=== PATIENT | female | born 1950 | race Caucasian/White ===

== ENCOUNTER 2020-10-22 14:51 | Outpatient (REF) | payer MEDICARE, MEDICAID, SELFPAY ==
[2020-10-22 15:32] LABS: Hematocrit 38.4 % (37-47); Hemoglobin 12.7 g/dl (12.0-16.0); Mean Corpuscular HGB Conc 33.1 g/dl (31.0-35.0); Mean Corpuscular Hemoglobin 28.6 pg (27.0-33.0); Mean Corpuscular Volume 86.5 fL (80-98); Mean Platelet Volume 10.9 fL (9.4-12.3); Platelet Count 182 X10*3/uL (160-400); Red Blood Count 4.44 X10*6/uL (4.20-5.50); Red Cell Distribution Width 12.4 % (11.0-16.0); White Blood Count 6.3 X10*3/uL (4.8-10.8)
[2020-10-22 15:57] LABS: Alanine Aminotransferase 20 U/L (0-31); Albumin Level 4.4 g/dL (3.5-5.0); Alkaline Phosphatase 74 U/L (39-117); Anion Gap 13 (12-20); Aspartate Amino Transferase 23 U/L (5-31); Bilirubin Direct 0.3 mg/dL (0.0-0.5); Bilirubin Total 0.8 mg/dL (0.0-1.0); Blood Urea Nitrogen 22 mg/dL (9-16); Calcium 9.2 mg/dL (8.4-10.2); Carbon Dioxide 23 mmol/L (22-29); Chloride 107 mmol/L (96-108); Cholesterol 192 mg/dL; Estimated Glomerular Filt Rate > 60; Glucose Random 100 mg/dL (60-115); HDL Cholesterol 48 mg/dL; LDL Cholesterol Calculated 99 mg/dl; Potassium 4.2 mmol/L (3.3-5.1); Sodium 139 mmol/L (135-145); Total Protein 7.2 g/dL (6.5-8.0); Triglycerides 227 mg/dL
[2020-10-22 16:20] LABS: Thyroid Stimulating Hormone 2.09 uIU/mL (0.32-4.0)
[2020-10-22 16:24] LABS: Appearance Urine HAZY; Color Urine YELLOW; Glucose Urine UA NEG (NEG); Leukocyte Esterase Urine NEG (NEG); Nitrite Urine NEG (NEG); PH 5.5 (5.0-8.0); Specific Gravity - Urine 1.025 (1.005-1.025); Urine Blood NEG (NEG); Urine Ketones NEG (NEG); Urine Protein NEG (NEG-TRACE)
[2020-10-26 14:21] LABS: Vitamin D 25-OH, D2 <4 ng/mL; Vitamin D 25-OH, D3 11 ng/mL; Vitamin D 25-OH, Total 11 ng/mL (30-100)
== END 2020-10-22 14:52 | disposition home or self-care (01) ==
LOC: HO.LAB 14:51
PROVIDERS: PCP Internal Medicine; Visit Provider Internal Medicine
DX: E03.9 Hypothyroidism, unspecified (principal); E78.00 Pure hypercholesterolemia, unspecified; M19.90 Unspecified osteoarthritis, unspecified site; I10 Essential (primary) hypertension; F43.21 Adjustment disorder with depressed mood
CPT/HCPCS: 36415; 80048; 80061; 80076; 81003; 82306; 84443; 85027

== ENCOUNTER 2021-09-30 12:11 | Outpatient (REF) | payer MEDICARE, MEDICAID, SELFPAY ==
[2021-09-30 13:12] LABS: Alanine Aminotransferase 18 U/L (0-31); Albumin Level 4.3 g/dL (3.5-5.0); Alkaline Phosphatase 70 U/L (39-117); Anion Gap 12 (12-20); Aspartate Amino Transferase 17 U/L (5-31); Bilirubin Direct 0.4 mg/dL (0.0-0.5); Blood Urea Nitrogen 15 mg/dL (9-16); Carbon Dioxide 26 mmol/L (22-29); Chloride 106 mmol/L (96-108); Cholesterol 190 mg/dL; Estimated Glomerular Filt Rate > 60; Glucose Random 103 mg/dL (60-115); HDL Cholesterol 41 mg/dL; LDL Cholesterol Calculated 91 mg/dl; Potassium 4.1 mmol/L (3.3-5.1); Sodium 140 mmol/L (135-145); Total Protein 7.3 g/dL (6.5-8.0); Triglycerides 294 mg/dL
[2021-09-30 13:35] LABS: Thyroid Stimulating Hormone 3.28 uIU/mL (0.32-4.0)
[2021-09-30 14:50] LABS: Appearance Urine CLOUDY; Color Urine YELLOW; Glucose Urine UA NEG (NEG); Leukocyte Esterase Urine NEG (NEG); Nitrite Urine NEG (NEG); Urine Blood NEG (NEG); Urine Ketones NEG (NEG); Urine Protein NEG (NEG-TRACE)
[2021-10-04 13:03] LABS: Vitamin D 25-OH, D2 <4 ng/mL; Vitamin D 25-OH, D3 34 ng/mL; Vitamin D 25-OH, Total 34 ng/mL (30-100)
== END 2021-09-30 12:12 | disposition home or self-care (01) ==
LOC: HO.LAB 12:11
PROVIDERS: PCP Internal Medicine; Visit Provider Internal Medicine
DX: E03.9 Hypothyroidism, unspecified (principal); E78.00 Pure hypercholesterolemia, unspecified; I10 Essential (primary) hypertension
CPT/HCPCS: 36415; 80048; 80061; 80076; 81003; 82306; 84443; 86140

== ENCOUNTER 2021-12-13 08:30 | Outpatient (REF) | payer MEDICARE, MEDICAID, SELFPAY ==
--- NOTE | ~2021-12-13 | MM_ITS ---
EXAMINATION: MM SCREENING DIGITAL BREAST TOMOSYNTHESIS, BILATERAL CLINICAL INFORMATION: Screening. Asymptomatic. The lifetime risk of breast cancer based on the Tyrer-Cuzick Model is 3%. COMPARISON: Mammography: 01/14/2019, 03/22/2014 TECHNIQUE: Digital breast tomosynthesis is performed in both the craniocaudal and mediolateral oblique views along with computer-aided detection (CAD). Synthesized 2D images are generated from the tomosynthesis. FINDINGS: There are scattered areas of fibroglandular density (ACR BI-RADS breast composition Category b). There are no significant masses, abnormal calcifications, or other abnormalities. Parenchymal pattern is similar to prior exam. There is a 0.8 cm macrolobulated nodule left breast mid central 11:00 position similar to prior exam. No developing density. No significant change. MM/MM tomosynthesis screening BI IMPRESSION: No mammographic evidence of malignancy. ASSESSMENT: BI-RADS 2: Benign RECOMMENDATION: Routine annual mammography screening. This patient's information was entered into a reminder system with a target due date for their next mammogram.
== END 2021-12-13 08:31 | disposition home or self-care (01) ==
LOC: HO.MAMMO 08:30
PROVIDERS: PCP Internal Medicine; Visit Provider Internal Medicine
DX: Z12.31 Encounter for screening mammogram for malignant neoplasm of breast (principal)
CPT/HCPCS: 77063; 77067

== ENCOUNTER 2022-10-30 11:03 | Outpatient (REF) | payer MEDICARE, MEDICAID, SELFPAY ==
[2022-10-30 12:16] LABS: Hematocrit 39.3 % (37.0-47.0); Mean Corpuscular HGB Conc 33.1 g/dl (31.0-35.0); Mean Corpuscular Hemoglobin 28.6 pg (27.0-33.0); Mean Corpuscular Volume 86.4 fL (80.0-98.0); Mean Platelet Volume 11.3 fL (9.4-12.3); Platelet Count 193 X10*3/uL (160-400); Red Blood Count 4.55 X10*6/uL (4.20-5.50); Red Cell Distribution Width 12.6 % (11.0-16.0); White Blood Count 6.4 X10*3/uL (4.8-10.8)
[2022-10-30 12:37] LABS: Appearance Urine Cloudy; Color Urine Yellow; Glucose Urine UA Negative (Negative); Leukocyte Esterase Urine Moderate (2+) (Negative); Nitrite Urine Negative (Negative); UMIC TRIGGER UA YES; Urine Blood Negative (Negative); Urine Ketones Negative (Negative); Urine Protein Negative (Neg-Trace)
[2022-10-30 12:46] LABS: Bacteria Urine 3+ (None Seen); RBC Urine 0-2 /HPF (0-2); Squamous Epithelial Cell Urine >20 /HPF (0-2)
[2022-10-30 13:14] LABS: Alanine Aminotransferase 20 U/L (0-31); Albumin Level 4.4 g/dL (3.5-5.0); Alkaline Phosphatase 72 U/L (39-117); Anion Gap 15 (12-20); Aspartate Amino Transferase 19 U/L (5-31); Bilirubin Direct 0.2 mg/dL (0.0-0.5); Bilirubin Total 1.3 mg/dL (0.0-1.0); Blood Urea Nitrogen 18 mg/dL (9-16); Calcium 9.5 mg/dL (8.4-10.2); Carbon Dioxide 26 mmol/L (22-29); Chloride 105 mmol/L (96-108); Cholesterol 184 mg/dL; Estimated Glomerular Filt Rate > 60; Glucose Random 106 mg/dL (60-115); HDL Cholesterol 44 mg/dL; LDL Cholesterol Calculated 93 mg/dl; Potassium 4.8 mmol/L (3.3-5.1); Sodium 141 mmol/L (135-145); Triglycerides 237 mg/dL
[2022-10-30 13:22] LABS: Thyroid Stimulating Hormone 3.46 uIU/mL (0.32-4.0)
== END 2022-10-30 11:04 | disposition home or self-care (01) ==
LOC: HO.LAB 11:03
PROVIDERS: PCP Internal Medicine; Visit Provider Internal Medicine
DX: I10 Essential (primary) hypertension (principal); E78.00 Pure hypercholesterolemia, unspecified
CPT/HCPCS: 36415; 80048; 80061; 80076; 81001; 84443; 85027

== ENCOUNTER 2023-04-30 09:56 | Outpatient (AMB) | payer MEDICARE, MEDICAID, SELFPAY ==
--- NOTE | 2023-04-30 10:01 | A.OFFPC_ITS ---
Vital Signs 04/30/23 10:03 Height 5 ft 3 in Weight 192 lb 4 oz BMI 34.1 BP 130/74 Blood Pressure Location Lt brachial Position Sitting Pulse 56 Pulse Source Pulse Oximeter Pulse Oximetry (%) 96 Oxygen Delivery Method Room Air Intake Visit Reasons: 6mth f/u Intake Note: Patient is here to follow up on HTN,Osteoarthritis, Hypercholesterolemia. Liquefied Petroleum Gasfitter Required: Yes Liquefied Petroleum Gasfitter Language: Trinidadian Liquefied Petroleum Gasfitter Name: Daughter Network Technical Analyst: Present Accompanied by: Daughter Allergies No Known Allergies Allergy (Verified 05/05/23 06:33) Medication List - Last Reconciled 05/05/23 by Parish Francisco MD cholecalciferol (vitamin D3) 1,250 mcg PO QWEEK clonazepam 0.5 mg PO BID 30 days diclofenac sodium 75 mg PO BID levothyroxine 100 mcg PO DAILY lisinopril 20 mg PO DAILY metoprolol tartrate 50 mg PO BID simvastatin 40 mg PO DAILY tramadol 50 mg PO DAILY walker (Ultra-Light Rollator misc) with seat [walker with seat As directed] Tobacco use date assessed: 10/30/22 HPI 6mth f/u HPI Details 72-year-old female presents to the offic e to discuss her chronic medical conditions. Her daughter is translating for the patient. Patient continues to have nonspecific pains in different parts of her body. Mostly around the joints and has stiffness. Daughter reports that the symptoms are waxing and waning in intensity. She has good days when she is very active and able to function and in the other days she just likes to sit around. Her appetite is good. Bowel movements are good. Sleep patterns are good with the medications. Compliant with all medications. Anxiety symptoms are at baseline. [facility] Medical History (Updated 05/05/23 @ 06:44 by Parish Francisco MD) Generalized anxiety disorder Grief reaction Acquired hypothyroidism Borderline hypercholesterolemia Osteoarthritis Essential (primary) hypertension Surgical History No pertinent past surgical history Family History Father No problems noted. Mother No problems noted. Brother No problems noted. Brother No problems noted. Brother No problems noted. Brother No problems noted. Sister No problems noted. Sister No problems noted. Son No problems noted. Son No problems noted. Daughter No problems noted. Social History Housing: Apartment Alcohol intake: never Patient Tobacco Use Status: Never used Tobacco e-Cigarette/Vaping Use: Never Used Second Hand Smoke Exposure: No service: No Current occupational status: disabled Cognitive needs: Yes (cane) Hearing needs: No Vision needs: Yes (glasses) Questionnaire PHQ-9 Over the last 2 weeks, how often have you been bothered by any of the following problems? 1. Little interest or pleasure in doing things: not at all 2. Feeling down, depressed, or hopeless: not at all 3. Trouble falling or staying asleep, or sleeping too much: not at all 4. Feeling tired or having little energy: not at all 5. Poor appetite or overeating: not at all 6. Feeling bad about yourself - or that you are a failure or have let yourself or your family down: not at all 7. Trouble concentrating on things, such as reading the newspaper or watching television: not at all 8. Moving or speaking so slowly that other people could have noticed. Or the opposite - being so fidgety or restless that you have been moving around a lot more than usual: not at all 9. Thoughts that you would be better off or of hurting yourself in some way: not at all Total score: 0 Depression Screening Interpretation: Negative Source: Developed by Drs. Brian Barragan, Suzanne Couch, Christophe Judge and colleagues, with an educational perry from [employer]. Thrive Questionnaire Date Thrive assessed: 04/30/23 I am a: Patient What is your living situation today?: I have a steady place to live Within the past 12 months, did the food you bought not last and you didn't have the money to get more?: Never true Within the past 12 months, did you worry whether your food would run out before you got money to buy more?: Never true Do you have trouble paying for medicines?: No Do you have trouble getting transportation to medical appointments?: No Do you have trouble paying your heating and electricity bill?: No Do you have trouble taking care of your child, family member or friend?: No Do you have trouble with day-to-day activities such as bathing, preparing meals, shopping, managing finances, etc.?: No Are you currently unemployed and looking for a job?: No Are you interested in more education?: No Currently or been in a relationship where the following occur: no concerns reported AUDIT C Alcohol Use Questionnaire (AUDIT-C) 1. How often do you have a drink containing alcohol?: Never Total Score: 0 EMILY-7 AMB Questionnaire EMILY-7 Date EMILY - 7 assessed: 04/30/23 Feeling nervous, anxious, or on edge: 0 = Not at all Not being able to stop or control worryin = Not at all Worrying too much about different things: 0 = Not at all Trouble relaxin = Not at all Being so restless that it is hard to sit still: 0 = Not at all Becoming easily annoyed or irritable: 0 = Not at all Feeling afraid as if something awful might happen: 0 = Not at all Total EMILY-7 score (0-4 normal; 5-9 mild; 10-14 moderate; 15-21 severe): 0 Source: Developed by Drs. Brian Barragan, Suzanne Couch, Christophe Judge and colleagues, with an educational perry from [employer]. Physical exam (Primary Care) Vital Signs: Last Vital Signs Pulse 56 04/30/23 10:03 BP 130/74 04/30/23 10:03 Pulse Ox 96 04/30/23 10:03 Oxygen Delivery Method Room Air 04/30/23 10:03 Care Plan Goal for BP management: Blood pressure is stable. Continue current medications. BMI result Body Mass Index 34.1 BMI Assessment/Plan discussion: High (1 lb per week weight loss suggested.) BMI High, discussed plan: lifestyle, weight reduction and dietary Tobacco/Smoking Status: Tobacco use Status Tobacco use date assessed 10/30/22 04/30/23 10:01 Patient Tobacco Use Status Never used Tobacco 04/30/23 10:01 e-Cigarette/Vaping Use Never Used 04/30/23 10:01 PHQ-9: PHQ-9 Score PHQ-9: Total score 0 04/30/23 10:12 Depression Screening Interpretation: Negative Thrive Assessment: Date of Thrive Assessment Date Thrive assessed 04/30/23 04/30/23 10:12 Currently or been in a relationship where the following occur: no concerns reported Const General: cooperative and healthy appearing Nutritional Appearance: well nourished Orientation/consciousness: patient oriented x3 Limitations: no limitations HENMT Head: Yes normal to inspection Eyes General: appearance normal, both eyes and all related structures Neck Neck: Yes normal visual inspection Chest Chest palpation & inspection: normal palpation of entire chest wall Resp Effort & Inspection: normal respiratory effort Neuro General: patient oriented x3 Assessment and Plan Assessment & Plan (1) Acquired hypothyroidism: Code(s): E03.9 - Hypothyroidism, unspecified Plan: Blood work ordered. Continue thyroid medications at same dosage. (2) Borderline hypercholesterolemia: Code(s): E78.00 - Pure hypercholesterolemia, unspecified Plan: Blood work ordered. Continue medications at same dosage. (3) Osteoarthritis: Code(s): M19.90 - Unspecified osteoarthritis, unspecified site Qualifiers: Osteoarthritis location: unspecified site Osteoarthritis type: primary Qualified Code(s): M19.91 - Primary osteoarthritis, unspecified site Plan: Patient unfortunately has progressing osteoarthritis. Her body pain symptoms are partly due to the osteoarthritis. She is on tramadol and increase in dosage is not appropriate. Patient was encouraged to exercise and stretch (4) Essential (primary) hypertension: Code(s): I10 - Essential (primary) hypertension Plan: Blood pressure is in range. Continue current medications. (5) Generalized anxiety disorder: Code(s): F41.1 - Generalized anxiety disorder Plan: Continue current medications. Coding Level of Care Code Est Pt Level 4 (63739) Diagnoses Acquired hypothyroidism E03.9 Borderline hypercholesterolemia E78.00 Primary osteoarthritis, unspecified site M19.91 Osteoarthritis location: unspecified site Osteoarthritis type: primary Essential (primary) hypertension I10 Generalized anxiety disorder F41.1
[2023-04-30 10:03] VITALS: BP 130/74; PULSE 56; O2SAT 96; BMI 34.1
== END 2023-04-30 11:01 | disposition home or self-care (01) ==
PROVIDERS: PCP Internal Medicine; Visit Provider Internal Medicine
DX: E03.9 Hypothyroidism, unspecified (principal); E78.00 Pure hypercholesterolemia, unspecified; M19.91 Primary osteoarthritis, unspecified site; I10 Essential (primary) hypertension; F41.1 Generalized anxiety disorder
CPT/HCPCS: 99214

== ENCOUNTER 2023-08-13 13:34 | Outpatient (AMB) | payer MEDICARE, MEDICAID, SELFPAY ==
--- NOTE | 2023-08-13 13:37 | MHC.PC.OV ---
Vital Signs 08/13/23 13:39 Height 5 ft 3 in Weight 192 lb 2 oz BMI 34.0 BP 132/62 Blood Pressure Location Lt brachial Position Sitting Pulse 72 Pulse Source Pulse Oximeter Pulse Oximetry (%) 98 Oxygen Delivery Method Room Air Intake Visit Reasons: 3mth f/u Intake Note: Patient is here to follow up on HTN, Osteoarthritis, Hypothyroidism. Adult Psychiatrist Required: Yes Adult Psychiatrist Language: Citizen Of [place] Adult Psychiatrist Name: Daughter Information Interpreted: non-clinical & clinical Rib Trim Separator: Present Accompanied by: Daughter Allergies No Known Allergies Allergy (Verified 08/24/23 06:04) Medication List - Last Reconciled 08/24/23 by Parish Francisco MD cholecalciferol (vitamin D3) 1,250 mcg PO QWEEK clonazepam 1 mg PO DAILY 30 days levothyroxine 100 mcg PO DAILY lisinopril 20 mg PO DAILY metoprolol tartrate 50 mg PO BID simvastatin 40 mg PO DAILY tramadol 50 mg PO DAILY walker (Ultra-Light Rollator misc) with seat [walker with seat As directed] Tobacco use date assessed: 08/13/23 Fall risk assessment: No Falls in past year Last assessed Fall Risk: 08/13/23 HPI 3mth f/u HPI Details 73-year-old female presents to the office to discuss her chronic medical conditions. She is accompanied by her daughter who is translating. Patient is at baseline state of health. Continues to have the usual aches and pains. Patient is sleeping well and is having a good appetite. Does not exercise and is confined to the home. Daughter reports that patient is usually alert and answers all questions appropriately at all times. No history of urinary incontinence. [facility] Medical History (Updated 05/05/23 @ 06:44 by Parish Francisco MD) Generalized anxiety disorder Grief reaction Acquired hypothyroidism Borderline hypercholesterolemia Osteoarthritis Essential (primary) hypertension Surgical History No pertinent past surgical history Family History Father No problems noted. Mother No problems noted. Brother No problems noted. Brother No problems noted. Brother No problems noted. Brother No problems noted. Sister No problems noted. Sister No problems noted. Son No problems noted. Son No problems noted. Daughter No problems noted. Social History Housing: Apartment Alcohol intake: never Patient Tobacco Use Status: Never used Tobacco e-Cigarette/Vaping Use: Never Used Second Hand Smoke Exposure: No service: No Current occupational status: disabled Cognitive needs: Yes (cane) Hearing needs: No Vision needs: Yes (glasses) Questionnaire Thrive Questionnaire Date Thrive assessed: 04/30/23 EMILY-7 AMB Questionnaire EMILY-7 Date EMILY - 7 assessed: 04/30/23 Source: Developed by Drs. Brian Barragan, Suzanne Couch, Christophe Judge and colleagues, with an educational perry from [employer]. Physical exam (Primary Care) Vital Signs: Last Vital Signs Pulse 72 08/13/23 13:39 BP 132/62 08/13/23 13:39 Pulse Ox 98 08/13/23 13:39 Oxygen Delivery Method Room Air 08/13/23 13:39 BMI result Body Mass Index 34.0 Tobacco/Smoking Status: Tobacco use Status Tobacco use date assessed 08/13/23 08/13/23 13:44 Patient Tobacco Use Status Never used Tobacco 08/13/23 13:37 e-Cigarette/Vaping Use Never Used 08/13/23 13:37 Thrive Assessment: Date of Thrive Assessment Date Thrive assessed 04/30/23 08/13/23 13:37 Const General: cooperative and healthy appearing Nutritional Appearance: well nourished Orientation/consciousness: patient oriented x3 Limitations: no limitations HENMT Head: Yes normal to inspection Eyes General: appearance normal, both eyes and all related structures Neck Neck: Yes normal visual inspection Chest Chest palpation & inspection: normal palpation of entire chest wall Resp Effort & Inspection: normal respiratory effort Neuro General: patient oriented x3 Assessment and Plan Assessment & Plan (1) Generalized anxiety disorder: Code(s): F41.1 - Generalized anxiety disorder Plan: Continue current medications. (2) Essential (primary) hypertension: Code(s): I10 - Essential (primary) hypertension Plan: Blood pressure is in range. Continue medications at same dosage. Blood work has been reviewed with patient. Medications: Refilled clonazepam 1 mg PO DAILY 30 tabs 1RF 30 days Discontinued diclofenac sodium Discontinued Reason: Doctor's Order 75 mg PO BID 180 tabs 0RF Coding Level of Care Code Est Pt Level 4 (27165) Diagnoses Generalized anxiety disorder F41.1 Essential (primary) hypertension I10
[2023-08-13 13:39] VITALS: BP 132/62; PULSE 72; O2SAT 98; BMI 34.0
== END 2023-08-13 14:08 | disposition home or self-care (01) ==
LOC: HO.HMGH 13:34
PROVIDERS: PCP Internal Medicine; Visit Provider Internal Medicine
DX: F41.1 Generalized anxiety disorder (principal); I10 Essential (primary) hypertension
CPT/HCPCS: 99214

== ENCOUNTER 2023-11-02 13:32 | Outpatient (AMB) | payer MEDICARE, MEDICAID, SELFPAY ==
--- NOTE | 2023-11-02 13:37 | A.OFFPC_ITS ---
Vital Signs 11/02/23 13:45 Height 5 ft 3 in Weight 192 lb 2 oz BMI 34.0 BP 130/70 Blood Pressure Location Lt brachial Position Sitting Pulse 59 Pulse Source Pulse Oximeter Pulse Oximetry (%) 97 Oxygen Delivery Method Room Air Intake Visit Reasons: 3mth f/u Intake Note: Patient is here to follow up on HTN, Osteoarthritis, Hypercholesterolemia, Hypothyroidism. High School Academic Coach Required: Yes High School Academic Coach Language: Lao High School Academic Coach Name: Kirti (daughter) Information Interpreted: non-clinical & clinical Senior Quality Assurance Engineer: Present Accompanied by: Daughter Allergies No Known Allergies Allergy (Verified 11/02/23 14:25) Medication List - Last Reconciled 11/02/23 by Parish Francisco MD cholecalciferol (vitamin D3) 1,250 mcg PO QWEEK clonazepam 1 mg PO DAILY 30 days levothyroxine 100 mcg PO DAILY lisinopril 20 mg PO DAILY metoprolol tartrate 50 mg PO BID simvastatin 40 mg PO DAILY tramadol 50 mg PO DAILY walker (Ultra-Light Rollator [email or web address]) with seat [walker with seat As directed] Tobacco use date assessed: 11/02/23 Fall risk assessment: No Falls in past year Last assessed Fall Risk: 11/02/23 Dental Screening Dental Screen Date: 11/02/23 HPI 3mth f/u HPI Details 73-year-old female presents to the [facility] e to discuss her chronic medical conditions. Patient is using a walker and ambulating. She comes with her daughter. Daughter is speaking on the patient's behalf. Patient continues to have pain and stiffness in the right and left hand along with a right and left knee. Since the last office visit she has had tingling sensations in the left upper extremity. Able to function and do activities of daily living. Patient is dependent on her daughter to go out of the house. [facility] Medical History Generalized anxiety disorder Grief reaction Acquired hypothyroidism Borderline hypercholesterolemia Osteoarthritis Essential (primary) hypertension Surgical History No pertinent past surgical history Family History Father No problems noted. Mother No problems noted. Brother No problems noted. Brother No problems noted. Brother No problems noted. Brother No problems noted. Sister No problems noted. Sister No problems noted. Son No problems noted. Son No problems noted. Daughter No problems noted. Social History Housing: Apartment Alcohol intake: never Patient Tobacco Use Status: Never used Tobacco e-Cigarette/Vaping Use: Never Used Second Hand Smoke Exposure: No service: No Current occupational status: disabled Cognitive needs: Yes (cane) Hearing needs: No Vision needs: Yes (glasses) Questionnaire PHQ-9 Over the last 2 weeks, how often have you been bothered by any of the following problems? 1. Little interest or pleasure in doing things: not at all 2. Feeling down, depressed, or hopeless: not at all 3. Trouble falling or staying asleep, or sleeping too much: not at all 4. Feeling tired or having little energy: not at all 5. Poor appetite or overeating: not at all 6. Feeling bad about yourself - or that you are a failure or have let yourself or your family down: not at all 7. Trouble concentrating on things, such as reading the newspaper or watching television: not at all 8. Moving or speaking so slowly that other people could have noticed. Or the opposite - being so fidgety or restless that you have been moving around a lot more than usual: not at all 9. Thoughts that you would be better off or of hurting yourself in some way: not at all Total score: 0 Depression Screening Interpretation: Negative Depression Screening Done: Yes Source: Developed by Drs. Brian Barragan, Suzanne Couch, Christophe Judge and colleagues, with an educational perry from [employer]. Thrive Questionnaire Date Thrive assessed: 11/02/23 I am a: Patient What is your living situation today?: I have a steady place to live Within the past 12 months, did the food you bought not last and you didn't have the money to get more?: Never true Within the past 12 months, did you worry whether your food would run out before you got money to buy more?: Never true Do you have trouble paying for medicines?: No Do you have trouble getting transportation to medical appointments?: No Do you have trouble paying your heating and electricity bill?: No Do you have trouble taking care of your child, family member or friend?: No Do you have trouble with day-to-day activities such as bathing, preparing meals, shopping, managing finances, etc.?: No Are you currently unemployed and looking for a job?: No Are you interested in more education?: No Currently or been in a relationship where the following occur: no concerns reported THRIVE Score: 0 AUDIT C Alcohol Use Questionnaire (AUDIT-C) 1. How often do you have a drink containing alcohol?: Never Total Score: 0 EMILY-7 AMB Questionnaire EMILY-7 Date EMILY - 7 assessed: 11/02/23 Feeling nervous, anxious, or on edge: 0 = Not at all Not being able to stop or control worryin = Not at all Worrying too much about different things: 0 = Not at all Trouble relaxin = Not at all Being so restless that it is hard to sit still: 0 = Not at all Becoming easily annoyed or irritable: 0 = Not at all Feeling afraid as if something awful might happen: 0 = Not at all Total EMILY-7 score (0-4 normal; 5-9 mild; 10-14 moderate; 15-21 severe): 0 Source: Developed by Drs. Brian Barragan, Suzanne Couch, Christophe Judge and colleagues, with an educational perry from [employer]. Physical exam (Primary Care) Vital Signs: Last Vital Signs Pulse 59 11/02/23 13:45 BP 130/70 11/02/23 13:45 Pulse Ox 97 11/02/23 13:45 Oxygen Delivery Method Room Air 11/02/23 13:45 BMI result Body Mass Index 34.0 BMI Assessment/Plan discussion: High Tobacco/Smoking Status: Tobacco use Status Tobacco use date assessed 11/02/23 11/02/23 13:40 Patient Tobacco Use Status Never used Tobacco 11/02/23 13:39 e-Cigarette/Vaping Use Never Used 11/02/23 13:39 PHQ-9: PHQ-9 Score PHQ-9: Total score 0 11/02/23 13:39 Depression Screening Interpretation: Negative Thrive Assessment: Date of Thrive Assessment Date Thrive assessed 11/02/23 11/02/23 13:39 Currently or been in a relationship where the following occur: no concerns reported Const General: cooperative and healthy appearing Nutritional Appearance: well nourished Orientation/consciousness: patient oriented x3 Limitations: no limitations HENMT Head: Yes normal to inspection Eyes General: appearance normal, both eyes and all related structures Neck Neck: Yes normal visual inspection Chest Chest palpation & inspection: normal palpation of entire chest wall Resp Effort & Inspection: normal respiratory effort Neuro General: patient oriented x3 Assessment and Plan Assessment & Plan (1) Osteoarthritis: Code(s): M19.90 - Unspecified osteoarthritis, unspecified site Qualifiers: Osteoarthritis location: unspecified site Osteoarthritis type: primary Qualified Code(s): M19.91 - Primary osteoarthritis, unspecified site Plan: Patient has extensive osteoarthritis consistent with age. I offered her a steroid injection. Patient declines the same. She takes tramadol intermittently. I advised her to use [id number] Tylenol for pain relief. Coding Level of Care Code Est Pt Level 4 (14352) Diagnoses Primary osteoarthritis, unspecified site M19.91 Osteoarthritis location: unspecified site Osteoarthritis type: primary
[2023-11-02 13:45] VITALS: BP 130/70; PULSE 59; O2SAT 97; BMI 34.0
== END 2023-11-02 14:23 | disposition home or self-care (01) ==
PROVIDERS: PCP Internal Medicine; Visit Provider Internal Medicine
DX: M19.91 Primary osteoarthritis, unspecified site (principal)
CPT/HCPCS: 99214

== ENCOUNTER 2024-02-04 13:35 | Outpatient (AMB) | payer MEDICARE, MEDICAID, SELFPAY ==
--- NOTE | 2024-02-04 13:40 | MHC.PC.OV ---
Vital Signs 02/04/24 13:44 Height 5 ft 3 in Weight 185 lb 4 oz BMI 32.8 BP 136/74 Blood Pressure Location Lt brachial Position Sitting Pulse 66 Pulse Source Pulse Oximeter Pulse Oximetry (%) 97 Oxygen Delivery Method Room Air Intake Visit Reasons: 3mth f/u Intake Note: Patient is here to follow up on HTN, Hypothyroidism, Hypercholesterolemia. Plastic Straightening Roll Operator Required: Yes Plastic Straightening Roll Operator Language: Bahraini Plastic Straightening Roll Operator Name: Kirti (daughter) Information Interpreted: non-clinical & clinical Er Rn: Present Accompanied by: Daughter Allergies No Known Allergies Allergy (Verified 02/04/24 14:08) Medication List - Last Reconciled 02/04/24 by Parish Francisco MD cholecalciferol (vitamin D3) 1,250 mcg PO QWEEK clonazepam 1 mg PO DAILY 30 days levothyroxine 100 mcg PO DAILY lisinopril 20 mg PO DAILY metoprolol tartrate 50 mg PO BID simvastatin 40 mg PO DAILY tramadol 50 mg PO DAILY walker (Ultra-Light Rollator [employer]) with seat [walker with seat As directed] Tobacco use date assessed: 02/04/24 Fall risk assessment: No Falls in past year Last assessed Fall Risk: 02/04/24 Dental Screening Dental Screen Date: 11/02/23 HPI 3mth f/u HPI Details 73-year-old female presents to the office to discuss her chronic medical conditions. Patient is compliant with medications and reporting no side effects. She walks with a walker. She comes into the office with her daughter who is translating. At baseline state of health. Her left knee continues to bother her. [facility] Medical History Generalized anxiety disorder Grief reaction Acquired hypothyroidism Borderline hypercholesterolemia Osteoarthritis Essential (primary) hypertension Surgical History No pertinent past surgical history Family History Father No problems noted. Mother No problems noted. Brother No problems noted. Brother No problems noted. Brother No problems noted. Brother No problems noted. Sister No problems noted. Sister No problems noted. Son No problems noted. Son No problems noted. Daughter No problems noted. Social History Housing: Apartment Alcohol intake: never Patient Tobacco Use Status: Never used Tobacco e-Cigarette/Vaping Use: Never Used Second Hand Smoke Exposure: No service: No Current occupational status: disabled Cognitive needs: Yes (cane) Hearing needs: No Vision needs: Yes (glasses) Questionnaire Thrive Questionnaire Date Thrive assessed: 11/02/23 EMILY-7 AMB Questionnaire EMILY-7 Date EMILY - 7 assessed: 11/02/23 Source: Developed by Drs. Brian Barragan, Suzanne Couch, Christophe Judge and colleagues, with an educational perry from [employer]. Physical exam (Primary Care) Vital Signs: Last Vital Signs Pulse 66 02/04/24 13:44 BP 136/74 02/04/24 13:44 Pulse Ox 97 02/04/24 13:44 Oxygen Delivery Method Room Air 02/04/24 13:44 BMI result Body Mass Index 32.8 Tobacco/Smoking Status: Tobacco use Status Tobacco use date assessed 02/04/24 02/04/24 13:42 Patient Tobacco Use Status Never used Tobacco 02/04/24 13:42 e-Cigarette/Vaping Use Never Used 02/04/24 13:42 Thrive Assessment: Date of Thrive Assessment Date Thrive assessed 11/02/23 02/04/24 13:42 Const General: cooperative and healthy appearing Nutritional Appearance: well nourished Orientation/consciousness: patient oriented x3 Limitations: no limitations HENMT Head: Yes normal to inspection Eyes General: appearance normal, both eyes and all related structures Neck Neck: Yes normal visual inspection Chest Chest palpation & inspection: normal palpation of entire chest wall Resp Effort & Inspection: normal respiratory effort Neuro General: patient oriented x3 Extrem Other: Left knee: Crepitus on motion. Assessment and Plan Assessment & Plan (1) Osteoarthritis: Code(s): M19.90 - Unspecified osteoarthritis, unspecified site Qualifiers: Osteoarthritis location: unspecified site Osteoarthritis type: primary Qualified Code(s): M19.91 - Primary osteoarthritis, unspecified site Plan: Continues to decline steroid injections. (2) Essential (primary) hypertension: Code(s): I10 - Essential (primary) hypertension Plan: Blood pressure is in range. Continue medications at same dosage. Coding Level of Care Code Est Pt Level 3 (56530) Complex EM visit Add On G2211 Diagnoses Primary osteoarthritis, unspecified site M19.91 Osteoarthritis location: unspecified site Osteoarthritis type: primary Essential (primary) hypertension I10
[2024-02-04 13:44] VITALS: BP 136/74; PULSE 66; O2SAT 97; BMI 32.8
== END 2024-02-04 14:05 | disposition home or self-care (01) ==
PROVIDERS: PCP Internal Medicine; Visit Provider Internal Medicine
DX: M19.91 Primary osteoarthritis, unspecified site (principal); I10 Essential (primary) hypertension
CPT/HCPCS: 99213; G2211

== ENCOUNTER 2024-08-04 14:42 | Outpatient (AMB) | payer MEDICARE, MEDICAID, SELFPAY ==
--- NOTE | 2024-08-04 14:51 | MHC.PC.OV ---
Vital Signs 08/04/24 14:53 Height 5 ft 3 in Weight 182 lb 4 oz BMI 32.3 BP 110/74 Blood Pressure Location Lt brachial Position Sitting Pulse 62 Pulse Source Pulse Oximeter Pulse Oximetry (%) 97 Oxygen Delivery Method Room Air Intake Visit Reasons: 6mth f/u Intake Note: Patient is here to follow up on HTN, OA, Hypercholesterolemia. Pt decline flu shot today. Duplication Specialist Required: Yes Duplication Specialist Language: Marshallese Duplication Specialist Name: Kirti (Daughter) Information Interpreted: non-clinical & clinical Case Sealer: Present Accompanied by: Daughter Allergies No Known Allergies Allergy (Verified 08/04/24 15:19) Medication List - Last Reconciled 08/04/24 by Parish Francisco MD cholecalciferol (vitamin D3) 1,250 mcg PO QWEEK clonazepam 1 mg PO DAILY 30 days levothyroxine 100 mcg PO DAILY lisinopril 20 mg PO DAILY metoprolol tartrate 50 mg PO BID simvastatin 40 mg PO DAILY tramadol 50 mg PO DAILY walker (Ultra-Light Rollator misc) with seat [walker with seat As directed] Tobacco use date assessed: 08/04/24 Fall risk assessment: No Falls in past year Last assessed Fall Risk: 08/04/24 Dental Screening Dental Screen Date: 11/02/23 PENDING SALE TO [facility] Medical History Generalized anxiety disorder Grief reaction Acquired hypothyroidism Borderline hypercholesterolemia Osteoarthritis Essential (primary) hypertension Surgical History No pertinent past surgical history Family History Father No problems noted. Mother No problems noted. Brother No problems noted. Brother No problems noted. Brother No problems noted. Brother No problems noted. Sister No problems noted. Sister No problems noted. Son No problems noted. Son No problems noted. Daughter No problems noted. Social History Housing: Apartment Alcohol intake: never Patient Tobacco Use Status: Never used Tobacco e-Cigarette/Vaping Use: Never Used Second Hand Smoke Exposure: No service: No Current occupational status: disabled Cognitive needs: Yes (cane) Hearing needs: No Vision needs: Yes (glasses) Questionnaire Thrive Questionnaire Date Thrive assessed: 11/02/23 AUDIT C Alcohol Use Questionnaire (AUDIT-C) 3. How often do you have six or more drinks on one occasion?: Never Total Score: 0 EMILY-7 AMB Questionnaire EMILY-7 Date EMILY - 7 assessed: 11/02/23 Source: Developed by Drs. Brian Barragan, Suzanne Couch, Christophe Judge and colleagues, with an educational perry from [employer]. Physical exam (Primary Care) Vital Signs: Last Vital Signs Pulse 62 08/04/24 14:53 BP 110/74 08/04/24 14:53 Pulse Ox 97 08/04/24 14:53 Oxygen Delivery Method Room Air 08/04/24 14:53 BMI result Body Mass Index 32.3 Tobacco/Smoking Status: Tobacco use Status Tobacco use date assessed 08/04/24 08/04/24 14:58 Patient Tobacco Use Status Never used Tobacco 08/04/24 14:52 e-Cigarette/Vaping Use Never Used 08/04/24 14:52 Thrive Assessment: Date of Thrive Assessment Date Thrive assessed 11/02/23 08/04/24 14:52 Coding Level of Care Code Est Pt Level 4 (34939) Complex EM visit Add On G2211 Diagnoses Primary osteoarthritis, unspecified site M19.91 Osteoarthritis location: unspecified site Osteoarthritis type: primary Generalized anxiety disorder F41.1 Essential (primary) hypertension I10 Assessment & Plan Assessment & Plan (1) Osteoarthritis: Code(s): M19.90 - Unspecified osteoarthritis, unspecified site Category: Medical Qualifiers: Osteoarthritis location: unspecified site Osteoarthritis type: primary Qualified Code(s): M19.91 - Primary osteoarthritis, unspecified site Plan: She has bad Osteoarthritis and would definitely benefit from injections or joint replacement. Patient is very reluctant to follow any of these suggestions. Current management with Tramadol will continue. (2) Generalized anxiety disorder: Code(s): F41.1 - Generalized anxiety disorder Category: Medical Plan: Continue Klonopin as needed. Her symptoms are at baseline. (3) Essential (primary) hypertension: Code(s): I10 - Essential (primary) hypertension Category: Medical Plan: BP is stable. Continue medications at same dosage. Plan History of Present Illness The patient is a 74-year-old female presenting with knee osteoarthritis. Her condition has been causing significant discomfort, and she is currently using a walker for mobility due to pain in her legs. She reports bothersome symptoms for some time, which have remained unchanged. Currently, the patient is on tramadol for pain management and has expressed concerns about injection therapy as a potential intervention for pain relief. No recent blood work has been conducted, and the last review was some time ago. She also has a history of anxiety, for which she requires continued pharmacological management. The patient has lost weight recently. She has a history of falling and currently experiences slow physical movement. Declines flu vaccination. Blood pressure is reportedly stable, and she has a good dietary intake. Social History - Uses a walker for ambulation. - Reports slowed physical movement. - Regular food consumption noted, with a recent weight loss. - No flu shot administered, though it was discussed. - Family history notable for the loss of a brother and father. Review of Systems - Musculoskeletal: Reports knee pain, arthritis, and use of walker for ambulation. - General: Reports weight loss. - Psychiatric: Reports anxiety and fluctuating sleep patterns. Physical Exam General: Appearance normal, both eyes and all related structures Nutritional Appearance: Lost some weight Orientation/consciousness: Patient oriented x3 Limitations: Using a walker now Head: Normal to inspection Neck: Normal visual inspection Chest: Normal palpation of entire chest wall Respiratory: Normal respiratory effort Neurology: Patient oriented x3 Results Plan - Continue prescription for metoprolol and adjust as necessary. - Address zero refills on clonazepam; provide renewal for anxiety management. - Investigate feasibility and patient interest in possible joint injection therapy for osteoarthritis. - Schedule blood work as discussed for comprehensive review. - Maintain tramadol for pain management. - Monitor dietary habits and encourage balanced nutrition with potential weight loss strategies. - Advise re-evaluation for potential flu vaccination. Patient was informed and verbally consented to the use of an ambient scribe for clinic note documentation during this visit. Discussion Notes We discussed the current management of her knee osteoarthritis, primarily focusing on the use of tramadol. The discussion included the potential benefits of injection therapy for symptom relief, though the patient expressed hesitance. We reviewed her anxiety management, resulting in the agreement to renew clonazepam prescriptions due to zero refills currently. It is essential for continued stability in her mental health condition. Blood work was deemed necessary and agreed upon due to elapsed time since the last tests. No flu vaccination was administered despite discussion, and we explored family history as potential context for current health status. Recommendations were reviewed thoroughly. Patient Instructions - Complete blood work as soon as possible. - Continue current medications as prescribed, renew clonazepam when refill is zero. - Use walker for support and caution with physical activities. - Maintain healthy eating habits and monitoring weight. - Consider discussing flu vaccination during the next visit. - Manage pain with tramadol; discuss other pain management options if needed. - Follow up as needed for any change in symptoms or concerns. Orders: Orders Basic Metabolic Panel Today F41.1 - Generalized anxiety disorder, I10 - Essential (primary) hypertension, M1. - Primary osteoarthritis, unspecified site Complete Blood Count no Diff Today F41.1 - Generalized anxiety disorder, I10 - Essential (primary) hypertension, M1. - Primary osteoarthritis, unspecified site Lipid Panel Today F41.1 - Generalized anxiety disorder, I10 - Essential (primary) hypertension, M1. - Primary osteoarthritis, unspecified site Liver Panel Today F41.1 - Generalized anxiety disorder, I10 - Essential (primary) hypertension, M1. - Primary osteoarthritis, unspecified site Thyroid Stimulating Hormone Today F41.1 - Generalized anxiety disorder, I10 - Essential (primary) hypertension, M1. - Primary osteoarthritis, unspecified site UA and rflx microscopic Today F41.1 - Generalized anxiety disorder, I10 - Essential (primary) hypertension, M1. - Primary osteoarthritis, unspecified site Medications: Refilled metoprolol tartrate 50 mg PO BID 180 tabs 1RF clonazepam 1 mg PO DAILY 30 days 30 tabs 1RF
[2024-08-04 14:53] VITALS: BP 110/74; PULSE 62; O2SAT 97; BMI 32.3
== END 2024-08-04 15:14 | disposition home or self-care (01) ==
PROVIDERS: PCP Internal Medicine; Visit Provider Internal Medicine
DX: M19.91 Primary osteoarthritis, unspecified site (principal); F41.1 Generalized anxiety disorder; I10 Essential (primary) hypertension

== ENCOUNTER 2024-08-04 14:42 | Outpatient (REF) | payer MEDICARE, MEDICAID, SELFPAY ==
[2024-08-04 17:04] LABS: Hematocrit 38.1 % (37.0-47.0); Mean Corpuscular HGB Conc 34.1 g/dl (31.0-35.0); Mean Corpuscular Hemoglobin 29.3 pg (27.0-33.0); Mean Platelet Volume 11.6 fL (9.4-12.3); Platelet Count 171 X10*3/uL (160-400); Red Blood Count 4.43 X10*6/uL (4.20-5.50); Red Cell Distribution Width 12.4 % (11.0-16.0)
[2024-08-04 17:08] LABS: Appearance Urine Clear; Color Urine Yellow; Glucose Urine UA Negative (Negative); Leukocyte Esterase Urine Negative (Negative); Nitrite Urine Negative (Negative); Specific Gravity - Urine 1.015 (1.005-1.025); Urine Blood Negative (Negative); Urine Ketones Negative (Negative); Urine Protein Negative (Neg-Trace)
[2024-08-04 17:42] LABS: Alanine Aminotransferase 19 U/L (0-31); Albumin Level 4.2 g/dL (3.5-5.0); Alkaline Phosphatase 63 U/L (39-117); Anion Gap 11 (12-20); Aspartate Amino Transferase 22 U/L (5-31); Bilirubin Direct 0.3 mg/dL (0.0-0.5); Bilirubin Total 0.8 mg/dL (0.0-1.0); Blood Urea Nitrogen 10 mg/dL (9-16); Calcium 9.6 mg/dL (8.4-10.2); Carbon Dioxide 27 mmol/L (22-29); Chloride 110 mmol/L (96-108); Cholesterol 153 mg/dL (<200); Estimated Glomerular Filt Rate > 60; Glucose Random 121 mg/dL (60-115); HDL Cholesterol 47 mg/dL (>40); LDL Cholesterol Calculated 67 mg/dL (<100); Potassium 3.9 mmol/L (3.3-5.1); Sodium 144 mmol/L (135-145); Total Protein 7.1 g/dL (6.5-8.0); Triglycerides 197 mg/dL (<150)
[2024-08-04 17:52] LABS: Thyroid Stimulating Hormone 2.53 uIU/mL (0.32-4.0)
== END 2024-08-04 14:43 | disposition home or self-care (01) ==
LOC: HO.LAB 14:42
PROVIDERS: PCP Internal Medicine; Visit Provider Internal Medicine
DX: M19.91 Primary osteoarthritis, unspecified site (principal); F41.1 Generalized anxiety disorder; I10 Essential (primary) hypertension
CPT/HCPCS: 36415; 80048; 80061; 80076; 81003; 84443; 85027; 99212

== ENCOUNTER 2024-11-24 14:39 | Outpatient (AMB) | payer MEDICARE, MEDICAID, SELFPAY ==
--- NOTE | 2024-11-24 15:01 | A.OFFPC_ITS ---
Vital Signs 11/24/24 15:04 Height 5 ft 3 in Weight 178 lb 2 oz BMI 31.5 BP 130/70 Blood Pressure Location Lt brachial Position Sitting Pulse 70 Pulse Source Pulse Oximeter Temp 97.3 F Temp Source Temporal Artery Scan Pulse Oximetry (%) 97 Oxygen Delivery Method Room Air Intake Visit Reasons: 3 month f/u Intake Note: Patient is here to follow up on HTN, Hypercholesterolemia, Hypothyroidism. Train Caller Required: Yes Train Caller Language: Surinamese Train Caller Name: Kirti (Daughter) Information Interpreted: non-clinical & clinical Diesel Engine Engineer: Present Accompanied by: Daughter Allergies No Known Allergies Allergy (Verified 11/24/24 15:44) Medication List - Last Reconciled 11/24/24 by Parish Francisco MD cholecalciferol (vitamin D3) 1,250 mcg PO QWEEK clonazepam 1 mg PO DAILY levothyroxine 100 mcg PO DAILY lisinopril 20 mg PO DAILY metoprolol tartrate 50 mg PO BID simvastatin 40 mg PO DAILY tramadol 50 mg PO DAILY 30 days walker (Ultra-Light Rollator misc) with seat [walker with seat As directed] Tobacco use date assessed: 11/24/24 Fall risk assessment: No Falls in past year Last assessed Fall Risk: 11/24/24 Dental Screening Dental Screen Date: 11/24/24 Did you have a dental visit in the last 12 months?: No Did you have a dental problem in the last 6 months where you did not have access to dental care?: No Was dental information given to patient?: No (Dentures) REPLACED BY [facility] Medical History Generalized anxiety disorder Grief reaction Acquired hypothyroidism Borderline hypercholesterolemia Osteoarthritis Essential (primary) hypertension Surgical History No pertinent past surgical history Family History Father No problems noted. Mother No problems noted. Brother No problems noted. Brother No problems noted. Brother No problems noted. Brother No problems noted. Sister No problems noted. Sister No problems noted. Son No problems noted. Son No problems noted. Daughter No problems noted. Social History Housing: Apartment Alcohol intake: never Patient Tobacco Use Status: Never used Tobacco e-Cigarette/Vaping Use: Never Used Second Hand Smoke Exposure: No service: No Current occupational status: disabled Cognitive needs: Yes (cane) Hearing needs: No Vision needs: Yes (glasses) Questionnaire PHQ-9 Over the last 2 weeks, how often have you been bothered by any of the following problems? 1. Little interest or pleasure in doing things: not at all 2. Feeling down, depressed, or hopeless: not at all 3. Trouble falling or staying asleep, or sleeping too much: not at all 4. Feeling tired or having little energy: not at all 5. Poor appetite or overeating: not at all 6. Feeling bad about yourself - or that you are a failure or have let yourself or your family down: not at all 7. Trouble concentrating on things, such as reading the newspaper or watching television: not at all 8. Moving or speaking so slowly that other people could have noticed. Or the opposite - being so fidgety or restless that you have been moving around a lot more than usual: not at all 9. Thoughts that you would be better off or of hurting yourself in some way: not at all Total score: 0 Depression Screening Interpretation: Negative Depression Screening Done: Yes Source: Developed by Drs. Brian Barragan, Suzanne Couch, Christophe Judge and colleagues, with an educational perry from [employer]. Thrive Questionnaire Date Thrive assessed: 11/24/24 I am a: Patient What is your living situation today?: I have a steady place to live Within the past 12 months, did the food you bought not last and you didn't have the money to get more?: Never true Within the past 12 months, did you worry whether your food would run out before you got money to buy more?: Never true Do you have trouble paying for medicines?: No Do you have trouble getting transportation to medical appointments?: No Do you have trouble paying your heating and electricity bill?: No Do you have trouble taking care of your child, family member or friend?: No Do you have trouble with day-to-day activities such as bathing, preparing meals, shopping, managing finances, etc.?: No Are you currently unemployed and looking for a job?: No Are you interested in more education?: No Please select the resources that you would like help with: None Currently or been in a relationship where the following occur: No concerns reported THRIVE Score: 0 AUDIT C Alcohol Use Questionnaire (AUDIT-C) 1. How often do you have a drink containing alcohol?: Never Total Score: 0 EMILY-7 AMB Questionnaire EMILY-7 Date EMILY - 7 assessed: 11/24/24 Feeling nervous, anxious, or on edge: 0 = Not at all Not being able to stop or control worryin = Not at all Worrying too much about different things: 0 = Not at all Trouble relaxin = Not at all Being so restless that it is hard to sit still: 0 = Not at all Becoming easily annoyed or irritable: 0 = Not at all Feeling afraid as if something awful might happen: 0 = Not at all Total EMILY-7 score (0-4 normal; 5-9 mild; 10-14 moderate; 15-21 severe): 0 Source: Developed by Drs. Brian Barragan, Suzanne Couch, Christophe Judge and colleagues, with an educational perry from [employer]. Physical exam (Primary Care) Vital Signs: Last Vital Signs Temp 97.3 F 11/24/24 15:04 Pulse 70 11/24/24 15:04 BP 130/70 11/24/24 15:04 Pulse Ox 97 11/24/24 15:04 Oxygen Delivery Method Room Air 11/24/24 15:04 Care Plan Goal for BP management: BP is in range. BMI result Body Mass Index 31.5 BMI Assessment/Plan discussion: High Tobacco/Smoking Status: Tobacco use Status Tobacco use date assessed 11/24/24 11/24/24 15:05 Patient Tobacco Use Status Never used Tobacco 11/24/24 15:03 e-Cigarette/Vaping Use Never Used 11/24/24 15:03 PHQ-9: PHQ-9 Score PHQ-9: Total score 0 11/24/24 15:03 Depression Screening Interpretation: Negative Thrive Assessment: Date of Thrive Assessment Date Thrive assessed 11/24/24 11/24/24 15:03 Currently or been in a relationship where the following occur: No concerns reported Advance Care Planning discussion: Exists, not on file Date of discussion: 11/24/24 Who was present: Patient, daughter Forms completed: Health Care Proxy Time spent: 1-15 minutes, not on file Actual minutes spent: 5 Coding Level of Care Code Est Pt Level 4 (17613) Complex EM visit Add On G2211 Diagnoses Generalized anxiety disorder F41.1 Primary osteoarthritis, unspecified site M19.91 Osteoarthritis location: unspecified site Osteoarthritis type: primary Essential (primary) hypertension I10 Additional Codes Vital Signs *Quality* - Advance Care Planning discussion: Exists, not on file ([id number]) Vital Signs *Quality* - Time spent: 1-15 minutes, not on file ([id number]) Assessment & Plan Assessment & Plan (1) Generalized anxiety disorder: Code(s): F41.1 - Generalized anxiety disorder Category: Medical Plan: Continue klonopin at same dosage, (2) Osteoarthritis: Code(s): M19.90 - Unspecified osteoarthritis, unspecified site Category: Medical Qualifiers: Osteoarthritis location: unspecified site Osteoarthritis type: primary Qualified Code(s): M19.91 - Primary osteoarthritis, unspecified site Plan: Patient symptoms are well controlled on Tramadol. (3) Essential (primary) hypertension: Code(s): I10 - Essential (primary) hypertension Category: Medical Plan: BP is in range. Continue current medications. Plan History of Present Illness The patient is a 74-year-old female presenting with osteoarthritis and generalized anxiety disorder. The osteoarthritis, affecting her knees, has consistently caused pain, and she utilizes a walker to aid in mobility. Despite this, no change in the severity or character of the pain was reported. For anxiety, she is stable on clonazepam, with no new symptoms reported. Essential hypertension is controlled with metoprolol, and her last blood work was unremarkable, showing normal thyroid levels and no other issues. She requires prescription refills for her existing medications at this time. Social History - Functional Status: Utilizes a walker due to knee osteoarthritis. - Level of Activity: Likely limited due to knee pain, although specific details were not provided. Review of Systems - Musculoskeletal: Reports knee pain (chronic and stable). - Psychiatric: Reports anxiety, managed with medication. Physical Exam General: Cooperative and healthy appearing Nutritional Appearance: Well nourished Orientation/consciousness: Patient oriented x3 Limitations: No limitations Head: Normal to inspection General: Appearance normal, both eyes and all related structures Neck: Normal visual inspection Chest: Normal palpation of entire chest wall Respiratory: N ormal respiratory effort Neurology: Patient oriented x3, strong Results - Labs: Last blood work was normal, including thyroid levels. Plan The management of the patient's osteoarthritis includes the continuation of tramadol for pain management. Her generalized anxiety disorder will be treated by continuing clonazepam, while her essential hypertension remains controlled with metoprolol. Recent labs do not require repetition now but will be reviewed again with the next visit. Prescription refills have been ensured, and the patient is advised to follow up in six months to reassess her medication efficacy and overall condition. Patient was informed and verbally consented to the use of an ambient scribe for clinic note documentation during this visit. Discussion Notes I discussed with the patient the current management of her osteoarthritis with tramadol and her anxiety with clonazepam, emphasizing that these medications should continue as they are controlling her symptoms. I confirmed her essential hypertension is stable on metoprolol. We reviewed her recent blood work, which returned with no abnormalities, indicating good management of her current health conditions. I ensured her that prescription refills for tramadol and clonazepam would be available, and we planned her follow-up visit for six months later for further evaluation. Patient Instructions - Continue taking tramadol for knee pain as prescribed. - Maintain clonazepam for anxiety management. - Continue metoprolol for blood pressure control. - Return for follow-up in six months. - No need for blood work now, but it will be reassessed in the next visit. - Use the walker as needed for mobility. Medications: Refilled tramadol 50 mg PO DAILY 30 days 30 tabs 0RF clonazepam 1 mg PO DAILY 30 tabs 0RF
[2024-11-24 15:04] VITALS: BP 130/70; PULSE 70; TEMP 36.3; O2SAT 97; BMI 31.5
== END 2024-11-24 15:41 | disposition home or self-care (01) ==
LOC: HO.HMCH 14:39
PROVIDERS: PCP Internal Medicine; Visit Provider Internal Medicine
DX: F41.1 Generalized anxiety disorder (principal); M19.91 Primary osteoarthritis, unspecified site; I10 Essential (primary) hypertension; Z00.00 Encounter for general adult medical examination without abnormal findings

== ENCOUNTER → 2024-11-24 14:39 | Outpatient (BNVA) | payer MEDICARE, MEDICAID, SELFPAY | PROVIDERS: PCP Internal Medicine; Visit Provider Internal Medicine | DX: I10 Essential (primary) hypertension (principal); E78.00 Pure hypercholesterolemia, unspecified; M19.91 Primary osteoarthritis, unspecified site; F41.1 Generalized anxiety disorder; M25.569 Pain in unspecified knee; Z79.891 Long term (current) use of opiate analgesic; Z79.899 Other long term (current) drug therapy | CPT/HCPCS: 96127; 99212 ==

== ENCOUNTER 2025-06-01 10:39 | Outpatient (AMB) | payer MEDICARE, MEDICAID, SELFPAY ==
--- NOTE | 2025-06-01 11:01 | MHC.PC.OV ---
Vital Signs 06/01/25 11:03 Height 5 ft 3 in Weight 168 lb 4 oz BMI 29.8 BP 140/64 H Blood Pressure Location Lt brachial Position Sitting Pulse 82 Pulse Source Pulse Oximeter Temp 96.9 F Temp Source Temporal Artery Scan Pulse Oximetry (%) 97 Oxygen Delivery Method Room Air Intake Visit Reasons: 6mth f/u - see comments Intake Note: Patient is here to follow up on HTN, Hypercholesterolemia, Hypothyroidism. 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 Mother No problems noted. Brother No problems noted. Brother No problems noted. Brother No problems noted. Brother No problems noted. Sister No problems noted. Sister No problems noted. Son No problems noted. Son No problems noted. Daughter No problems noted. Social History Housing: Apartment Alcohol intake: never Patient Tobacco Use Status: Never used Tobacco e-Cigarette/Vaping Use: Never Used Second Hand Smoke Exposure: No service: No Current occupational status: disabled Cognitive needs: Yes (cane) Hearing needs: No Vision needs: Yes (glasses) Questionnaire PHQ-9 Over the last 2 weeks, how often have you been bothered by any of the following problems? 1. Little interest or pleasure in doing things: several days 2. Feeling down, depressed, or hopeless: several days 3. Trouble falling or staying asleep, or sleeping too much: several days 4. Feeling tired or having little energy: more than half the days 5. Poor appetite or overeating: not at all 6. Feeling bad about yourself - or that you are a failure or have let yourself or your family down: not at all 7. Trouble concentrating on things, such as reading the newspaper or watching television: more than half the days 8. Moving or speaking so slowly that other people could have noticed. Or the opposite - being so fidgety or restless that you have been moving around a lot more than usual: more than half the days 9. Thoughts that you would be better off or of hurting yourself in some way: not at all Total score: 9 Depression Screening Interpretation: Positive Depression Screening Done: Yes Source: Developed by Drs. Brian Barragan, Suzanne Couch, Christophe Judge and colleagues, with an educational perry from [employer]. Thrive Questionnaire Date Thrive assessed: 11/24/24 I am a: Patient What is your living situation today?: I have a steady place to live Within the past 12 months, did the food you bought not last and you didn't have the money to get more?: I choose not to answer this question Within the past 12 months, did you worry whether your food would run out before you got money to buy more?: I choose not to answer this question Do you have trouble paying for medicines?: No Do you have trouble getting transportation to medical appointments?: No Do you have trouble paying your heating and electricity bill?: No Do you have trouble taking care of your child, family member or friend?: I choose not to answer this question Do you have trouble with day-to-day activities such as bathing, preparing meals, shopping, managing finances, etc.?: I choose not to answer this question Are you currently unemployed and looking for a job?: I choose not to answer this question Are you interested in more education?: No Please select the resources that you would like help with: None Currently or been in a relationship where the following occur: I choose not to answer THRIVE Score: 0 AUDIT C Alcohol Use Questionnaire (AUDIT-C) 1. How often do you have a drink containing alcohol?: Never Total Score: 0 EMILY-7 AMB Questionnaire EMILY-7 Date EMILY - 7 assessed: 04/10/25 Feeling nervous, anxious, or on edge: 2 = More than half the days Not being able to stop or control worryin = Several days Worrying too much about different things: 1 = Several days Trouble relaxin = More than half the days Being so restless that it is hard to sit still: 0 = Not at all Becoming easily annoyed or irritable: 0 = Not at all Feeling afraid as if something awful might happen: 0 = Not at all Total EMILY-7 score (0-4 normal; 5-9 mild; 10-14 moderate; 15-21 severe): 6 Source: Developed by Drs. Brian Barragan, Suzanne Couch, Christophe Judge and colleagues, with an educational perry from [employer]. Physical exam (Primary Care) Vital Signs: Last Vital Signs Temp 96.9 F 06/01/25 11:03 Pulse 82 06/01/25 11:03 BP 140/64 H 06/01/25 11:03 Pulse Ox 97 06/01/25 11:03 Oxygen Delivery Method Room Air 06/01/25 11:03 BMI result Body Mass Index 29.8 Tobacco/Smoking Status: Tobacco use Status Tobacco use date assessed 11/24/24 06/01/25 11:01 Patient Tobacco Use Status Never used Tobacco 06/01/25 11:01 e-Cigarette/Vaping Use Never Used 06/01/25 11:01 PHQ-9: PHQ-9 Score PHQ-9: Total score 9 06/01/25 11:03 Depression Screening Interpretation: Positive Thrive Assessment: Date of Thrive Assessment Date Thrive assessed 11/24/24 06/01/25 11:01 Currently or been in a relationship where the following occur: I choose not to answer Coding Level of Care Code Est Pt Level 4 (02261) Complex EM visit Add On G2211 Diagnoses Essential (primary) hypertension I10 Assessment & Plan Assessment & Plan (1) Essential (primary) hypertension: Code(s): I10 - Essential (primary) hypertension Category: Medical Plan: History of Present Illness - The patient is a 74-year-old female presenting with weight loss and arthritis management. - Weight loss: The patient has experienced weight loss, maintaining a weight of 170 pounds, similar to the last visit. - Arthritis: The patient continues to take her arthritis medications as prescribed. - Preventative care: A blood test has been ordered as part of routine preventative care. - Preventative care: The patient has not received the flu vaccine yet. Social History Review of Systems Physical Exam General: Cooperative and healthy appearing Nutritional Appearance: Well nourished Orientation/consciousness: Patient oriented x3 Limitations: No limitations Head: Normal to inspection General: Appearance normal, both eyes and all related structures Neck: Normal visual inspection Chest: Normal palpation of entire chest wall Respiratory: Normal respiratory effort Neurology: Patient oriented x3 Results Plan - Continue current arthritis medications as they are effective in managing symptoms. - Order and complete blood tests as part of routine preventative care. - Administer flu vaccine if not already done. Discussion Notes During the visit, we discussed the importance of continuing arthritis medications and the need for routine blood tests as part of preventative care. We also talked about the flu vaccine, which has not yet been administered. Patient Instructions - Continue taking arthritis medications as prescribed. - Complete the ordered blood tests. - Get the flu vaccine if not already received.
[2025-06-01 11:03] VITALS: BP 140/64; PULSE 82; TEMP 36.1; O2SAT 97; BMI 29.8
== END 2025-06-01 11:35 | disposition home or self-care (01) ==
LOC: HO.HMCH 10:40
PROVIDERS: PCP Internal Medicine; Visit Provider Internal Medicine
DX: I10 Essential (primary) hypertension (principal)

== ENCOUNTER 2025-06-01 10:39 | Outpatient (REF) | payer MEDICARE, MEDICAID, SELFPAY ==
[2025-06-01 13:34] LABS: Hematocrit 41.5 % (37.0-47.0); Hemoglobin 13.9 g/dl (12.0-16.0); Mean Corpuscular HGB Conc 33.5 g/dl (31.0-35.0); Mean Corpuscular Hemoglobin 29.2 pg (27.0-33.0); Mean Corpuscular Volume 87.2 fL (80.0-98.0); NRBC Abs Auto 0.000 X10*3/uL (0.0-0.012); NRBC Pct Auto 0.0 /100WBC (0.0-0.2); Platelet Count 179 X10*3/uL (160-400); Red Blood Count 4.76 X10*6/uL (4.20-5.50); White Blood Count 5.6 X10*3/uL (4.8-10.8)
[2025-06-01 14:07] LABS: Appearance Urine Clear; Glucose Urine UA Negative (Negative); PH 6.5 (5.0-9.0); Specific Gravity - Urine 1.020 (1.005-1.025)
[2025-06-01 14:43] LABS: Alanine Aminotransferase 12 U/L (0-31); Albumin Level 4.7 g/dL (3.5-5.0); Alkaline Phosphatase 76 U/L (39-117); Anion Gap 14 (12-20); Aspartate Amino Transferase 27 U/L (5-31); Blood Urea Nitrogen 17 mg/dL (9-16); Calcium 10.2 mg/dL (8.4-10.2); Carbon Dioxide 25 mmol/L (22-29); Chloride 107 mmol/L (96-108); Cholesterol 232 mg/dL (<200); Estimated Glomerular Filt Rate > 60; HDL Cholesterol 48 mg/dL (>40); Potassium 4.1 mmol/L (3.3-5.1); Sodium 142 mmol/L (135-145); Thyroid Stimulating Hormone 1.87 uIU/mL (0.32-4.0); Total Protein 7.4 g/dL (6.5-8.0); Triglycerides 199 mg/dL (<150)
== END 2025-06-01 10:40 | disposition home or self-care (01) ==
LOC: HO.LAB 10:39
PROVIDERS: PCP Internal Medicine; Visit Provider Internal Medicine
DX: I10 Essential (primary) hypertension (principal); M19.90 Unspecified osteoarthritis, unspecified site
CPT/HCPCS: 36415; 80048; 80061; 80076; 81003; 84443; 85027; 96127; 99212